=== PATIENT | female | born 1960 | race Caucasian/White ===

== ENCOUNTER 2021-01-22 10:03 | Inpatient (IN) ==
[2021-01-22] MEDS ORDERED: KETOROLAC 30 MG/1 ML VIAL IM STA (14:33)
[2021-01-22] MEDS ORDERED: KETOROLAC 30 MG/1 ML VIAL ONE (14:34)
[2021-01-22] MEDS ORDERED: DOCUSATE SODIUM 100 MG CAPSULE PO PRN (16:55)
[2021-01-22] MEDS ORDERED: DEXTROSE 50% 25 GM/50 ML VIAL IV PRN (16:55)
[2021-01-22] MEDS ORDERED: GLUCAGON 1 MG VIAL IM PRN (16:55)
[2021-01-22] MEDS ORDERED: guaiFENesin/DM ER 600-30 MG TABLET PO PRN (16:55)
[2021-01-22] MEDS ORDERED: hydrALAZINE 20 MG/1 ML VIAL IV PRN (16:55)
[2021-01-22 19:39] LABS: Basophils % 0.4 % (0.0-0.8); Eosinophils # 0.1 10*3/uL (0.0-0.87); Eosinophils % 1.6 % (0.00-10.9); Hematocrit 37.3 VOL% (35.7-47.0); Hemoglobin 11.1 GM/DL (12.0-16.0); Immature Granulocytes % 0.4 %; Immature Granulocytes Absolute 0.03 #; Lymphocytes # 1.8 10*3/uL (1.4-4.0); Lymphocytes % 24.1 % (21.3-54.2); Mean Corpuscular HGB Conc 29.8 GM/DL (32-36); Mean Corpuscular Volume 92.3 FL (87-102); Mean Platelet Volume 10.9 FL (9.6-12.0); Monocytes % 10.1 % (1.7-12.7); Neutrophils % 63.4 % (38.7-73.9); Platelet Count 220 T/CUMM (130-400); Red Blood Count 4.04 MC/CUMM (3.8-5.5); Red Cell Distribution Width 16.7 % (9.3-17.3); White Blood Count 7.6 T/CUMM (4-12)
[2021-01-22 19:48] LABS: Albumin 3.2 G/DL (3.4-5.0); Bilirubin,Total 0.4 MG/DL (0.20-1.00); Calcium 9.1 MG/DL (8.5-10.1); Osmolality,Calculated 279.7 MOS/KG (273-304); Potassium 3.2 MMOL/L (3.5-5.1); Total Protein 6.9 G/DL (6.4-8.2)
[2021-01-22 19:51] LABS: Folate 14.02 NG/ML (5.38-24.0)
[2021-01-22] MEDS: ALBUTEROL 2.5 MG/3 ML NEB RESP TX SCH (19:52)
[2021-01-22] MEDS: ENOXAPARIN 40 MG/0.4 ML SYRINGE SUBCUT SCH (21:20)
[2021-01-23] MEDS: ALBUTEROL 2.5 MG/3 ML NEB RESP TX SCH ×5 (01:06→19:13)
[2021-01-23] MEDS: ACETAMINOPHEN 325 MG TABLET PO PRN ×2 (03:22→15:26)
[2021-01-23 06:41] LABS: Basophils % 0.4 % (0.0-0.8); Eosinophils # 0.1 10*3/uL (0.0-0.87); Eosinophils % 1.3 % (0.00-10.9); Hematocrit 34.5 VOL% (35.7-47.0); Hemoglobin 10.3 GM/DL (12.0-16.0); Immature Granulocytes % 0.6 %; Immature Granulocytes Absolute 0.03 #; Lymphocytes # 1.1 10*3/uL (1.4-4.0); Lymphocytes % 20.2 % (21.3-54.2); Mean Corpuscular HGB Conc 29.9 GM/DL (32-36); Mean Corpuscular Volume 91.5 FL (87-102); Mean Platelet Volume 10.7 FL (9.6-12.0); Monocytes % 9.6 % (1.7-12.7); Neutrophils % 67.9 % (38.7-73.9); Platelet Count 205 T/CUMM (130-400); Red Blood Count 3.77 MC/CUMM (3.8-5.5); Red Cell Distribution Width 16.5 % (9.3-17.3); White Blood Count 5.3 T/CUMM (4-12)
[2021-01-23 07:07] LABS: Alanine Aminotransferase 19 U/L (13-56); Albumin 2.9 G/DL (3.4-5.0); Alkaline Phosphatase 60 U/L (45-117); Aspartate Amino Transferase 23 U/L (0-37); Bilirubin,Total < 0.39 MG/DL (0.20-1.00); Blood Urea Nitrogen 21 MG/DL (7-18); Calcium 8.7 MG/DL (8.5-10.1); Carbon Dioxide 26 MMOL/L (21-32); Estimated Glom Filtration Rate 58 ML/MIN; Glucose 91 MG/DL (74-106); HDL Cholesterol 38 MG/DL (40-60); Potassium 3.1 MMOL/L (3.5-5.1); Risk Ratio 4.03; Sodium 136 MMOL/L (136-145); Thyroid Stimulating Hormone 0.226 uIU/ml (0.358-3.74); Total Protein 6.3 G/DL (6.4-8.2); Triglycerides 156 MG/DL (2-150); VLDL Cholesterol 31.2 MG/DL
[2021-01-23 07:52] LABS: Free T4 (Free Thyroxine) 0.62 NG/DL (0.76-1.46)
[2021-01-23] MEDS: PANTOPRAZOLE 40 MG TABLET PO SCH (08:12)
[2021-01-23] MEDS: NICOTINE 21 MG/24 HR PATCH TRANSDERM PRN (10:30)
[2021-01-23] MEDS ORDERED: LORATADINE 10 MG TABLET PO PRN (11:02)
[2021-01-23] MEDS ORDERED: TEMAZEPAM 15 MG CAPSULE PO PRN (11:02)
[2021-01-23] MEDS ORDERED: CETIRIZINE 10 MG TABLET PO PRN (11:14)
[2021-01-23] MEDS: OXYBUTYNIN XL 10 MG TABLET PO SCH (12:21)
[2021-01-23] MEDS: ATORVASTATIN 20 MG TABLET PO SCH (12:21)
[2021-01-23] MEDS: PARoxetine 20 MG TABLET PO SCH (12:22)
[2021-01-23] MEDS: BUDESONIDE/FORMOTEROL 80-4.5 INHALER 6.9 GM INH SCH ×2 (12:25→20:56)
[2021-01-23] MEDS: POTASSIUM CHLORIDE 20 MEQ TABLET PO PRN ×2 (16:24→16:26)
[2021-01-23] MEDS: ENOXAPARIN 40 MG/0.4 ML SYRINGE SUBCUT SCH (20:56)
[2021-01-23] MEDS ORDERED: PRIMIDONE 50 MG TABLET PO SCH (21:00)
[2021-01-23] MEDS: ONDANSETRON 4 MG/2 ML VIAL IV PRN (21:00)
[2021-01-23] MEDS: Budesonide-Glycopyr-Formoterol [Breztri Aerosphere] 160-9-4.8 mc INH SCH ×2 (22:41→22:42)
[2021-01-24] MEDS: ALBUTEROL 2.5 MG/3 ML NEB RESP TX SCH ×4 (00:48→19:27)
[2021-01-24] MEDS ORDERED: PNEUMOCOCCAL VACCINE (23 VALENT) 0.5 ML VIAL IM ONE (09:00)
[2021-01-24] MEDS ORDERED: INFLUENZA VIRUS VACCINE 0.5 ML SYRINGE IM ONE (09:00)
[2021-01-24] MEDS: ATORVASTATIN 20 MG TABLET PO SCH (09:07)
[2021-01-24] MEDS: PANTOPRAZOLE 40 MG TABLET PO SCH (09:07)
[2021-01-24] MEDS: OXYBUTYNIN XL 10 MG TABLET PO SCH (09:08)
[2021-01-24] MEDS: PARoxetine 20 MG TABLET PO SCH (09:08)
[2021-01-24] MEDS: BUDESONIDE/FORMOTEROL 80-4.5 INHALER 6.9 GM INH SCH ×2 (09:20→22:19)
[2021-01-24] MEDS: Budesonide-Glycopyr-Formoterol [Breztri Aerosphere] 160-9-4.8 mc INH SCH ×2 (10:20→22:29)
[2021-01-24] MEDS: NICOTINE 21 MG/24 HR PATCH TRANSDERM PRN (10:23)
[2021-01-24 10:51] LABS: Calcium 9.4 MG/DL (8.5-10.1); Osmolality,Calculated 269.2 MOS/KG (273-304); Potassium 3.5 MMOL/L (3.5-5.1)
[2021-01-24] MEDS: ONDANSETRON 4 MG/2 ML VIAL IV PRN ×2 (18:18→22:36)
[2021-01-24] MEDS: ENOXAPARIN 40 MG/0.4 ML SYRINGE SUBCUT SCH (22:19)
[2021-01-24] MEDS: PRIMIDONE 50 MG TABLET PO SCH (22:20)
[2021-01-25] MEDS: ALBUTEROL 2.5 MG/3 ML NEB RESP TX SCH ×2 (00:49→07:25)
[2021-01-25 05:25] VITALS: BP 127/61
[2021-01-25] MEDS: OXYBUTYNIN XL 10 MG TABLET PO SCH (10:05)
[2021-01-25] MEDS: ATORVASTATIN 20 MG TABLET PO SCH (10:06)
[2021-01-25] MEDS: PRIMIDONE 50 MG TABLET PO SCH (10:06)
[2021-01-25] MEDS: BUDESONIDE/FORMOTEROL 80-4.5 INHALER 6.9 GM INH SCH (10:07)
[2021-01-25] MEDS: PARoxetine 20 MG TABLET PO SCH (10:07)
[2021-01-25] MEDS: PANTOPRAZOLE 40 MG TABLET PO SCH (10:07)
[2021-01-25] MEDS: Budesonide-Glycopyr-Formoterol [Breztri Aerosphere] 160-9-4.8 mc INH SCH (10:23)
[2021-01-25] MEDS: NICOTINE 21 MG/24 HR PATCH TRANSDERM PRN (12:25)
== END 2021-01-25 13:13 | disposition home health service (06) | DRG 641 ==
LOC: N.EDINP 10:03 → EDSEX 10:03 → N.ED 10:03 → N.5E 20:49 → SUATTDRO 01-23 09:48
PROVIDERS: ADMIT Internal Medicine Geriatric Medicine; ATTEND Internal Medicine